=== PATIENT | female | born 1970 | race Hispanic/Latino ===

== ENCOUNTER 2017-10-10 18:44 | Emergency (ER) | payer SELFPAY ==
[2017-10-10 19:24] LABS: BASOPHILS % (AUTO) 0.4 % (0.0-5.0); EOSINOPHILS % (AUTO) 2.1 % (0.0-8.0); HEMATOCRIT 43.6 % (36-48); LYMPHOCYTES % (AUTO) 24.4 % (21.0-51.0); MEAN CORPUSCULAR HEMOGLOBIN 29.7 pg (27.0-33.0); MEAN CORPUSCULAR HGB CONC 34.8 g/dL (32.0-36.0); MEAN CORPUSCULAR VOLUME 85.3 fL (79-99); MONOCYTES % (AUTO) 6.7 % (3.0-13.0); NEUTROPHILS % (AUTO) 66.4 % (40.0-77.0); PLATELET COUNT (AUTO) 275 K/uL (130-400); RED BLOOD CELL COUNT(AUTO) 5.11 MIL/uL (4.00-5.50); RED CELL DISTRIBUTION WIDTH 13.3 % (11.0-15.5); WHITE BLOOD COUNT (AUTO) 12.1 K/uL (4.8-10.8)
[2017-10-10] MEDS ORDERED: LISINOPRIL 5 MG TABLET ONE (19:29)
[2017-10-10 19:30] LABS: APPEARANCE,URINE Clear (CLEAR); BILIRUBIN,URINE Negative (NEGATIVE); COLOR,URINE Yellow (YELLOW); GLUCOSE, URINE (UA) Negative (NEGATIVE); KETONES,URINE Negative (NEGATIVE); LEUKOCYTE ESTERASE ,URINE Negative (NEGATIVE); NITRATE,URINE Negative (NEGATIVE); OCCULT BLOOD,URINE Negative (NEGATIVE); PROTEIN,URINE Negative (NEGATIVE); UROBILINOGEN,URINE 0.2 mg/dL (0.2-1.0)
[2017-10-10] MEDS ORDERED: HYDROCHLOROTHIAZIDE 25 MG TABLET ONE (19:30)
[2017-10-10 19:33] LABS: AMPHET/METH SCREEN,URINE NEGATIVE (NEGATIVE); BARBITURATE SCREEN, URINE NEGATIVE (NEGATIVE); BENZODIAZEPINES SCREEN,URINE NEGATIVE (NEGATIVE); CANNABINOID SCREEN,URINE NEGATIVE (NEGATIVE); COCAINE SCREEN,URINE NEGATIVE (NEGATIVE); HCG,QUAL RESULT NEGATIVE (NEGATIVE); OPIATE SCREEN,URINE NEGATIVE (NEGATIVE); PHENCYCLIDINE SCREEN,URINE NEGATIVE (NEGATIVE)
[2017-10-10 19:36] LABS: CREATININE 0.9 mg/dL (0.5-1.5); POTASSIUM 3.3 mmol/L (3.5-5.1)
[2017-10-10 19:51] LABS: BILIRUBIN,DIRECT 0.1 mg/dL (0.0-0.3); BILIRUBIN,TOTAL 0.3 mg/dL (0.2-1.0); CREATINE KINASE MB 1.1 ng/mL (0.5-3.6); TOTAL PROTEIN, SERUM 8.5 g/dL (6.0-8.3)
[2017-10-10] MEDS ORDERED: POTASSIUM BICARB/CIT AC 25 MEQ TABLET.EFF ONE (20:13)
== END 2017-10-10 20:47 | disposition home or self-care (01) ==
LOC: EDH 18:44
DX: I10 Essential (primary) hypertension (principal)
CPT/HCPCS: 36415; 80048; 80076; 80305; 81003; 81025; 82550; 82553; 84484; 85025; 93005

== ENCOUNTER 2018-10-12 23:13 | Emergency (ER) | payer SELFPAY ==
[2018-10-12] MEDS ORDERED: HYDRALAZINE HCL 25 MG TABLET ONE (23:58)
[2018-10-12] MEDS ORDERED: AMLODIPINE BESYLATE 5 MG TAB PO ONE (23:58)
[2018-10-13 00:10] LABS: BASOPHILS % (AUTO) 0.9 % (0.0-5.0); HEMATOCRIT 43.4 % (36-48); LYMPHOCYTES % (AUTO) 35.4 % (21.0-51.0); MEAN CORPUSCULAR HGB CONC 34.6 g/dL (32.0-36.0); MEAN CORPUSCULAR VOLUME 86.9 fL (79-99); MONOCYTES % (AUTO) 8.1 % (3.0-13.0); NEUTROPHILS % (AUTO) 51.6 % (40.0-77.0); NUCLEATED RED BLOOD CELLS 0.1 % (0.0-0.19); PLATELET COUNT (AUTO) 280 K/uL (130-400); WHITE BLOOD COUNT (AUTO) 9.4 K/uL (4.8-10.8)
[2018-10-13 00:22] LABS: POTASSIUM 3.2 mmol/L (3.5-5.1)
[2018-10-13 00:40] LABS: ALBUMIN 3.8 g/dL (3.5-5.0); BILIRUBIN,TOTAL 0.3 mg/dL (0.2-1.0); TOTAL PROTEIN, SERUM 8.1 g/dL (6.0-8.3)
[2018-10-13] MEDS ORDERED: POTASSIUM CHLORIDE 20 MEQ ERTAB PO ONE (01:05)
[2018-10-13] MEDS ORDERED: HYDRALAZINE HCL 20 MG/ML VIAL ONE (01:05)
== END 2018-10-13 01:41 | disposition home or self-care (01) ==
LOC: EDH 23:13
DX: I10 Essential (primary) hypertension (principal); R51 Headache
CPT/HCPCS: 36415; 70450; 80053; 81025; 82550; 84484; 85025; 93005; 96365; 99285; J0360

== ENCOUNTER 2019-09-01 19:07 | Emergency (ER) | payer SELFPAY ==
[2019-09-01] MEDS ORDERED: ACETAMINOPHEN EXTRA STRENGTH 500 MG TABLET ONE (19:50)
[2019-09-01 20:15] LABS: RAPID GROUP A STREP NEGATIVE (NEGATIVE)
== END 2019-09-01 20:52 | disposition home or self-care (01) ==
LOC: EDH 19:07
DX: B34.9 Viral infection, unspecified (principal)
CPT/HCPCS: 87804; 87880

== ENCOUNTER 2022-06-25 12:34 | Emergency (ER) | payer OTHER ==
[~2022-06-25] VITALS: Ht 162.6 cm; Wt 79.8 kg
[2022-06-25 13:18] LABS: CREATININE 0.9 mg/dL (0.5-1.5); POTASSIUM 3.4 mmol/L (3.5-5.1)
[2022-06-25 13:27] LABS: BASOPHILS % (AUTO) 0.5 % (0.0-5.0); EOSINOPHILS % (AUTO) 2.3 % (0.0-8.0); HEMATOCRIT 43.9 % (36-48); LYMPHOCYTES % (AUTO) 32.6 % (21.0-51.0); MEAN CORPUSCULAR HEMOGLOBIN 29.3 pg (27.0-33.0); MEAN CORPUSCULAR HGB CONC 33.3 g/dL (32.0-36.0); MEAN CORPUSCULAR VOLUME 88.2 fL (79-99); MONOCYTES % (AUTO) 7.7 % (3.0-13.0); NEUTROPHILS % (AUTO) 56.4 % (40.0-77.0); PLATELET COUNT (AUTO) 332 K/uL (130-400); RED BLOOD CELL COUNT(AUTO) 4.98 MIL/uL (4.00-5.50); RED CELL DISTRIBUTION WIDTH 13.3 % (11.0-15.5); TOTAL PROTEIN, SERUM 8.2 g/dL (6.0-8.3); WHITE BLOOD COUNT (AUTO) 10.8 K/uL (4.8-10.8)
[2022-06-25 14:34] LABS: APPEARANCE,URINE CLOUDY (CLEAR); BILIRUBIN,URINE NEGATIVE (NEGATIVE); COLOR,URINE YELLOW (YELLOW); GLUCOSE, URINE (UA) NEGATIVE (NEGATIVE); KETONES,URINE 5 mg/dL (NEGATIVE); LEUKOCYTE ESTERASE ,URINE 500 Leu/uL (NEGATIVE); NITRATE,URINE 2+ (NEGATIVE); OCCULT BLOOD,URINE MODERATE (NEGATIVE); PH,URINE 5.5 (5.0-8.0); PROTEIN,URINE 20 mg/dL (NEGATIVE); UROBILINOGEN,URINE 0.2 mg/dL (0.2-1.0)
[2022-06-25 14:40] LABS: BACTERIA,URINE MOD /HPF (None Seen); CALCIUM OXALATE CRYSTALS,UR RARE /LPF (None Seen); MUCUS,URINE RARE LPF (None Seen); SQUAMOUS EPITHELIAL CELL,UR MOD /HPF (0-2); WBC,URINE 26-50 /HPF (0-1)
[2022-06-25 14:47] VITALS: BP 147/69
[2022-06-25] MEDS ORDERED: CEFTRIAXONE 1G VIAL IVP ONE (15:30)
[2022-06-25] MEDS ORDERED: ONDA4TAB10 PO (15:33)
[2022-06-25] MEDS ORDERED: CEPH500B PO (15:33)
== END 2022-06-25 15:44 | disposition home or self-care (01) ==
LOC: EDH 12:34
DX: N39.0 Urinary tract infection, site not specified (principal); R11.0 Nausea; R42 Dizziness and giddiness; I10 Essential (primary) hypertension; Z79.899 Other long term (current) drug therapy; Z20.822 Contact with and (suspected) exposure to COVID-19
CPT/HCPCS: 99284; 87635; 84484 ×2; 80053; 85025; 87088; 81001; 36415; 93005; C9803; J0696; 87077; 87186

== ENCOUNTER 2022-06-27 12:11 | Emergency (ER) | payer OTHER ==
[~2022-06-27] VITALS: Ht 160 cm; Wt 73.9 kg
[~2022-06-27 12:11] MED LIST: CEPH500B PO; ONDA4TAB10 PO
[2022-06-27 13:33] LABS: BASOPHILS % (AUTO) 0.2 % (0.0-5.0); EOSINOPHILS % (AUTO) 1.7 % (0.0-8.0); HEMATOCRIT 41.6 % (36-48); LYMPHOCYTES % (AUTO) 20.7 % (21.0-51.0); MEAN CORPUSCULAR HEMOGLOBIN 29.7 pg (27.0-33.0); MEAN CORPUSCULAR HGB CONC 34.1 g/dL (32.0-36.0); MONOCYTES % (AUTO) 5.2 % (3.0-13.0); NEUTROPHILS % (AUTO) 71.8 % (40.0-77.0); PLATELET COUNT (AUTO) 314 K/uL (130-400); RED BLOOD CELL COUNT(AUTO) 4.78 MIL/uL (4.00-5.50); RED CELL DISTRIBUTION WIDTH 13.4 % (11.0-15.5); WHITE BLOOD COUNT (AUTO) 11.9 K/uL (4.8-10.8)
[2022-06-27 13:47] LABS: CREATININE 0.9 mg/dL (0.5-1.5)
[2022-06-27 13:52] LABS: ALBUMIN 3.9 g/dL (3.5-5.0); TOTAL PROTEIN, SERUM 7.9 g/dL (6.0-8.3)
[2022-06-27 14:30] LABS: APPEARANCE,URINE CLEAR (CLEAR); BILIRUBIN,URINE NEGATIVE (NEGATIVE); COLOR,URINE LIGHT-YELLOW (YELLOW); GLUCOSE, URINE (UA) NEGATIVE (NEGATIVE); KETONES,URINE NEGATIVE (NEGATIVE); LEUKOCYTE ESTERASE ,URINE NEGATIVE Leu/uL (NEGATIVE); NITRATE,URINE NEGATIVE (NEGATIVE); OCCULT BLOOD,URINE NEGATIVE (NEGATIVE); PROTEIN,URINE NEGATIVE (NEGATIVE); UROBILINOGEN,URINE 0.2 mg/dL (0.2-1.0)
[2022-06-27] MEDS ORDERED: FUROSEMIDE 20MG VIAL IV ONE (15:00)
[2022-06-27 16:18] VITALS: BP 135/65
== END 2022-06-27 16:22 | disposition home or self-care (01) ==
LOC: EDH 12:11
DX: I10 Essential (primary) hypertension (principal); Z79.899 Other long term (current) drug therapy
CPT/HCPCS: 99284; 96374; 84484; 80053; 85025; 81003; 36415; 93005; J1940

== ENCOUNTER 2024-07-16 17:15 | Emergency (ER) | payer BC ==
[~2024-07-16] VITALS: Ht 165.1 cm; Wt 81.6 kg
[~2024-07-16 17:15] MED LIST changes: +ONDA-243 PO; -ONDA4TAB10 PO
--- NOTE | 2024-07-16 18:21 | ERN ---
ED Note History of Present Illness Stated Complaint: STOMACH PAIN, WEAKNESS Chief Complaint: Flu Symptoms Time Seen by MD: 18:20 Time Seen by Midlevel: 18:00 Dictation: Ms. Mcneill is a 84-year-old female with no reported chronic health issues who presented to the emergency department this evening for evaluation of flu symptoms. She reports 24-48 hours body aches, headache, decreased appetite, nausea, painful cough, and fever. She states today symptoms are worse prompting her to come to the ER. She states she has no ill contacts. She denies chest pain, palpitations, shortness of breath, abdominal pain,vomiting, diarrhea, dysuria, headache, or dizziness. Allergies: Coded Allergies: No Known Allergies (Unverified Allergy, Unknown, 06/25/22) Home Meds Active Scripts Ondansetron (Ondansetron Odt) 4 Mg Tab.rapdis, 4 MG PO TID, #10 TAB Prov:FITTING,ARVIND TUNA PURSE SEINER 06/25/22 Cephalexin Monohydrate (Keflex) 500 Mg Cap, 500 MG PO QID for 7 Days, #28 CAP Prov:FITTING,GAYEPHANI TUNA PURSE SEINER 06/25/22 Past Medical History Past Medical History: No Pertinent History Surgical History: None PSYCH History: no pertinent psych hx Social History: Negative, Lives with family RN Note Reviewed/Agreed w/PFSH: Yes Review of System Dictation REVIEW OF SYSTEMS: CONSTITUTIONAL: Patient denies sweats and weight changes. Reports fatigue, general weakness, chills, and fever EYES: Patient denies any visual symptoms. EARS, NOSE, AND THROAT: No difficulties with hearing. No symptoms of rhinitis or sore throat. CARDIOVASCULAR: Patient denies chest pains, palpitations, orthopnea and paroxysmal nocturnal dyspnea. RESPIRATORY: No dyspnea on exertion, no wheezing. Reports painful cough GI: No vomiting, diarrhea, constipation, abdominal pain, hematochezia or melena. Reports nausea and decreased appetite : No urinary hesitancy or dribbling. No nocturia or urinary frequency. No abnormal urethral discharge. MUSCULOSKELETAL: Reports body aches. NEUROLOGIC: No chronic headaches, no seizures. Patient denies numbness, tingling or weakness. Reports headache PSYCHIATRIC: Patient denies problems with mood disturbance. No problems with anxiety. ENDOCRINE: No excessive urination or excessive thirst. DERMATOLOGIC: Patient denies any rashes or skin changes. Initial Vital Sign VS Vital Signs Date Time Temp Pulse Resp B/P (MAP) Pulse Ox O2 Delivery O2 Flow Rate FiO2 07/16/24 18:14 102.0 118 20 134/60 97 0 Physical Exam Dictation Vital signs: Reviewed. Temperature 102.2 Constitutional: No acute distress. Non-toxic appearing. Head/Face: Normocephalic, atraumatic. Eyes: Periorbital areas with no swelling, redness, or edema. Lids and lashes are normal. Conjunctival injection is absent. Sclera anicteric. Pupils equal, round, reactive to light. ENT: Pinnas intact and no signs of trauma or erythema. Ear canals clear and no discharge. TMs no erythema. No nasal discharge or bleeding noted. Oropharynx with no exudate, redness, swelling, masses, exudates, or evidence of obstruction. Uvula midline. Mucous membranes moist. Neck: Trachea midline, no masses palpated, and no cervical lymphadenopathy. No swelling. Supple, full range of motion. Chest/Axilla: No tenderness, no crepitus, no paradoxical movement, no retractions. Cardiovascular: Regular rate, regular rhythm, no murmur, no gallops. Symmetric pulses. No peripheral edema. Tachycardic heart rate 110 Respiratory: Respirations even and unlabored. Lung sounds clear; no wheezes, rales or rhonchi. Room air SpO2 97% Gastrointestinal: Inspection is normal. No distention is appreciated. Bowel sounds are normal. No mass or organomegaly . There is no tenderness. No rebound. No rigidity. No voluntary or involuntary guarding. No Mark's sign. Neurological: Normal speech, gross motor function intact, gross sensory function intact. No focal weakness/Paresthesia. Musculoskeletal/Extremities: All extremities have full range of motion, no pain or tenderness on palpation. Symmetric pulses. Integumentary: Intact. Skin is flushed, hot, and dry. Cap refill less than 3 seconds. Results (Laboratory/Radiology) Laboratory/Radiology Laboratory Tests Test 07/16/24 18:12 Influenza Type A Antigen Positive For Type A Influenza Type B Antigen Negative For Type B SARS-CoV-2 Antigen (Rapid) PRESUMPTIVE NEGATIVE Labs Reviewed?: Yes ED Course ED Course Orders Procedure Category Date Status Time Covid19 (Sars Antigen LAB 07/16/24 Complete Rapid) 18:12 Influenza Type A & B, LAB 07/16/24 Complete Rapid 18:12 Urinalysis Profile LAB 07/16/24 Logged 18:30 Ibuprofen 600 Mg PHA 07/16/24 Complete Tablet (Motrin) 18:30 Acetaminophen 325 Tab PHA 07/16/24 Complete (Tylenol 325mg Tab 18:30 Promethazine PHA 07/16/24 Complete Hcl/Codeine 18:30 Current Medications Medications (Trade) Dose Ordered Sig/Brittney Route PRN Reason Start Time Stop Time Status Last Admin Dose Admin Acetaminophen (TYLenol 325MG TAB) 650 mg ONCE ONCE PO 07/16/24 18:30 07/16/24 18:39 DC 07/16/24 19:06 Ibuprofen (moTRIN) 600 mg ONCE ONCE PO 07/16/24 18:30 07/16/24 18:39 DC 07/16/24 19:06 Promethazine HCl/ Codeine (Phenergan-Codeine Syrp) 7.5 ml ONCE ONCE PO 07/16/24 18:30 07/16/24 18:39 DC 07/16/24 19:07 Vital Signs Date Time Temp Pulse Resp B/P (MAP) Pulse Ox O2 Delivery O2 Flow Rate FiO2 07/16/24 18:14 102.0 118 20 134/60 97 0 Uneventful ED course. Heart rate and temperature decreased following doses of Tylenol and ibuprofen. She received dose Phenergan with codeine for cough. She states she is feeling better. Laboratory findings as noted below. Influenza B and COVID negative influenza a was positive. Medical Decision Making MDM MDM: Differential diagnosis: Influenza a/B, COVID, bronchitis Rationale: Tests considered and ordered secondary to shared decision making include: Previous outside records reviewed: Old ER visits. Risk of complication and/or morbidity or mortality of patient management: None Medications-Per medication reconciliation Need for hospitalization: Patient does not meet criteria for hospitalization. Need for emergency major/minor surgery: No There are no social concerns with this patient. Prescription drug management: Ondansetron, Tamiflu, ibuprofen Prescriptions will include symptomatic care Patient's prior external medical records from other ER visits were reviewed by me as indicated. Prior testing and results from previous visits were reviewed. Prior tests were taken into account with medical decision making and resource utilization, independent historian/historians were used to obtain complete medical history. I independently interpreted the test that were performed, results were reviewed by me and considered findings on radiology if ordered. Medical management and examination interpretation discussions were had by me with other qualified healthcare professionals as indicated for the patient's care. DX & DISP Disposition: Discharge Departure Impression: Primary Impression: Influenza A Condition: Stable Scripts Benzonatate (Tessalon Perles) 100 Mg Cap 1-2 CAP PO Q4H for cough, #16 CAP 0 Refills Prov: ROZ HUMPHREYS NP 07/16/24 Ondansetron (Ondansetron Odt) 4 Mg Tab.rapdis 4 MG PO Q6HPRN for nausea, #15 TAB 0 Refills Prov: ROZ HUMPHREYS NP 07/16/24 Oseltamivir Phosphate (Tamiflu) 75 Mg Cap 1 CAP PO BID for influenza A for 5 Days, #10 CAP 0 Refills Prov: ROZ HUMPHREYS NP 07/16/24 Ibuprofen (Ibuprofen) 600 Mg Tablet 600 MG PO Q6H PRN for PAIN, #15 TAB 0 Refills Prov: ROZ HUMPHREYS NP 07/16/24 Additional Instructions: Rest at home. Drink plenty of fluids. Alternate Tylenol and ibuprofen for fever/pain control. Continue Tamiflu one tablet twice daily for five days. May take ondansetron sure every 6-8 hours as needed for nausea. You may return to work/School when symptoms have improved and you have been fever free for 24 hours. Follow up with your primary care physician and return to the emergency department if symptoms worsen or concerns Referrals: SELF,REFERRAL (PCP) Time of Disposition: 19:41 ROZ HUMPHREYS NP Jul 16, 2024 18:21
[2024-07-16 18:55] LABS: COVID19 (SARS ANTIGEN RAPID) PRESUMPTIVE NEGATIVE (NEGATIVE); INFLUENZA TYPE B Negative For Type B (NEGATIVE)
[2024-07-16] MEDS: acetaMINOPHEN 325 MG TAB PO ONE (19:06)
[2024-07-16] MEDS: ibuPROFEN 600 MG TABLET PO ONE (19:06)
[2024-07-16 19:07] LABS: INFLUENZA TYPE A Positive For Type A (NEGATIVE)
[2024-07-16] MEDS: PROMETHAZINE/CODEINE 6.25-10MG/5ML CUP PO ONE (19:07)
[2024-07-16] MEDS ORDERED: OSEL75 PO (19:40)
[2024-07-16] MEDS ORDERED: IBUP-2070 PO (19:40)
[2024-07-16] MEDS ORDERED: ONDA-243 PO (19:45)
[2024-07-16] MEDS ORDERED: BENZ-39 PO (19:47)
[2024-07-16 19:53] LABS: APPEARANCE,URINE CLEAR (CLEAR); BILIRUBIN,URINE NEGATIVE (NEGATIVE); COLOR,URINE LIGHT-YELLOW (YELLOW); GLUCOSE, URINE (UA) NEGATIVE (NEGATIVE); KETONES,URINE NEGATIVE (NEGATIVE); LEUKOCYTE ESTERASE ,URINE 500 Leu/uL (NEGATIVE); NITRATE,URINE NEGATIVE (NEGATIVE); PROTEIN,URINE NEGATIVE (NEGATIVE); UROBILINOGEN,URINE 0.2 mg/dL (0.2-1.0)
[2024-07-16 19:59] LABS: ADD UA MICROSCOPIC YES
[2024-07-16] MEDS: OSELTAMIVIR PHOSPHATE 75 MG CAP PO SCH (19:59)
[2024-07-16 20:02] LABS: BACTERIA,URINE RARE /HPF (None Seen); MUCUS,URINE RARE LPF (None Seen); SQUAMOUS EPITHELIAL CELL,UR FEW /HPF (0-2); UNCLASSIFIED CRYSTAL 1 /HPF (None Seen); WBC,URINE 26-50 /HPF (0-1)
[2024-07-16 20:06] VITALS: BP 125/60; PULSE 110; RESP 20; TEMP 101.2; O2SAT 97
== END 2024-07-16 20:09 | disposition home or self-care (01) ==
LOC: EDH 17:15
DX: J10.1 Influenza due to other identified influenza virus with other respiratory manifestations (principal); Z20.822 Contact with and (suspected) exposure to COVID-19; Z79.899 Other long term (current) drug therapy
CPT/HCPCS: 99283; 87426; 87086; 87804 ×2; 81001; Q0169